=== PATIENT | male | born 1950 | race Caucasian/White ===

== ENCOUNTER → 2018-04-11 | Outpatient (CLI) | payer MEDICARE, OTHER ==
[~2018-04-11] MED LIST: LIDOCAINE HCL 1% LOCAL INJ 20 ML VIAL ONE
--- NOTE | 2018-04-11 15:00 | Diagnostic Imaging Report ---
PROCEDURE:BIOPSY THYROID FNA COMPARISON:CT scan of the neck with contrast from an outside facility 04/04/2018 INDICATIONS:Thyroid nodule Procedure diagnosis: Right thyroid nodule Post procedure diagnosis: Right thyroid nodule Sedation/anesthesia: None Additional medications: Lidocaine 1% local anesthesia Eyelet Cutter: Ryan Yuen M.D. Estimated blood loss: Minimal Blood products administered: None Specimens: Fine-needle aspiration specimens x4 Implant/graft: None FINDINGS: Informed consent the procedure was obtained from the patient and documented in the medical record after discussion of risks and benefits. The patient was placed in the supine position on the sonographic table. The right cervical region was prepped and draped in standard sterile fashion. 1% lidocaine was infiltrated into the skin and subcutaneous tissues for local anesthesia. Then under continuous sonographic guidance, 3 fine needle aspiration specimens were obtained using 25 gauge needles. Due to scant material on initial aspiration passes, an additional fine-needle aspiration specimen was obtained under ultrasound guidance using a 21-gauge needle. Specimens were submitted to on-site cytopathology personnel and adequacy was confirmed. Hardware was removed and a sterile dressing was applied. CONCLUSION: Successful ultrasound-guided fine needle aspiration of a right thyroid nodule as above. Dictated by: Ryan uYen M.D. on 04/11/2018 at 15:03 Electronically approved by: Ryan Yuen M.D. on 04/11/2018 at 15:03
--- NOTE | 2018-04-11 15:01 | Diagnostic Imaging Report ---
PROCEDURE:US THYROID COMPARISON:CT neck from an outside facility in April 2018. INDICATIONS:Right thyroid nodule FINDINGS: Right lobe: 5 x 3.2 x 3.9 cm. There is a complex mixed cystic and solid nodule with a large solid component in interpolar region measuring 5 x 3.2 x 3.4 cm. A coarse internal calcifications noted. Left lobe: 5.6 x 1.2 x 1.4 cm. Uniform parenchymal echotexture without focal nodule. Isthmus: 0.3 cm in thickness. Cervical region: Enlarged right jugular chain lymph nodes with loss of normal morphology, the largest of which measures 3 x 1.3 x 2.8 cm. CONCLUSION: Suspicious right thyroid nodule, subsequently biopsied and separately reported. Enlarged cervical lymph nodes and abnormal morphology concerning for metastatic disease. Dictated by: Ryan Yuen M.D. on 04/11/2018 at 15:05 Electronically approved by: Ryan Yuen M.D. on 04/11/2018 at 15:05
--- NOTE | 2018-04-15 09:29 | Diagnostic Imaging Report ---
PROCEDURE:BIOPSY THYROID FNA COMPARISON:CT scan of the neck with contrast from an outside facility 04/04/2018 INDICATIONS:Thyroid nodule Procedure diagnosis: Right thyroid nodule Post procedure diagnosis: Right thyroid nodule Sedation/anesthesia: None Additional medications: Lidocaine 1% local anesthesia Product Development Specialist: Ryan Yuen M.D. Estimated blood loss: Minimal Blood products administered: None Specimens: Fine-needle aspiration specimens x4 Implant/graft: None FINDINGS: Informed consent the procedure was obtained from the patient and documented in the medical record after discussion of risks and benefits. The patient was placed in the supine position on the sonographic table. The right cervical region was prepped and draped in standard sterile fashion. 1% lidocaine was infiltrated into the skin and subcutaneous tissues for local anesthesia. Then under continuous sonographic guidance, 3 fine needle aspiration specimens were obtained using 25 gauge needles. Due to scant material on initial aspiration passes, an additional fine-needle aspiration specimen was obtained under ultrasound guidance using a 21-gauge needle. Specimens were submitted to on-site cytopathology personnel and adequacy was confirmed. Hardware was removed and a sterile dressing was applied. CONCLUSION: Successful ultrasound-guided fine needle aspiration of a right thyroid nodule as above. Dictated by: Ryan Yuen M.D. on 04/11/2018 at 15:03 Electronically approved by: Ryan Yuen M.D. on 04/11/2018 at 15:03
== END ==
LOC: US 11:21
PROVIDERS: ATTEND Otolaryngology Otolaryngology/Facial Plastic Surgery
DX: E04.1 Nontoxic single thyroid nodule (principal)
CPT/HCPCS: 10022; 76536; 76942; 88112; 88172; 88173; 88305; J2001

== ENCOUNTER → 2020-03-01 | Day surgery (SDC) | payer MEDICARE, OTHER ==
--- NOTE | 2020-02-26 13:18 | Diagnostic Imaging Report ---
EXAMINATION: CHEST 2 VIEWS INDICATION: Pre-operative COMPARISON: None FINDINGS: LINES/TUBES:None LUNGS:The lungs are hyperinflated. No focal consolidation or pulmonary edema. PLEURA:No pleural effusion or pneumothorax. MEDIASTINUM:The cardiomediastinal silhouette appears normal in size and shape. BONES/SOFT TISSUES:No acute osseous injury. ABDOMEN:No free air under the diaphragm. IMPRESSION: Hyperinflated lungs. No focal pneumonia or pulmonary edema. Signed by: Shanon Iverson MD on 02/26/2020 1:15 PM
[2020-02-26 13:26] LABS: EOSINOPHILS # (AUTO) 0.1 (0.0-0.4); EOSINOPHILS % 2.9 % (0.0-6.0); HEMATOCRIT 44.3 % (38.2-49.6); HEMOGLOBIN 15.4 g/dL (14.0-18.0); LYMPHOCYTES # (AUTO) 1.3 (1.0-3.2); LYMPHOCYTES % 34.2 % (18.0-39.1); MEAN CORPUSCULAR HEMOGLOBIN 31.3 pg (28-32); MEAN CORPUSCULAR HGB CONC 34.8 g/dL (31-35); MONOCYTES # (AUTO) 0.3 (0.2-0.8); MONOCYTES % 7.3 % (4.4-11.3); NEUTROPHILS # (AUTO) 2.1 (2.1-6.9); NEUTROPHILS % 55.3 % (38.7-80.0); PLATELET COUNT 169 x10e3/uL (140-360); RED BLOOD COUNT 4.92 x10e6/uL (4.3-5.7); RED CELL DISTRIBUTION WIDTH 12.1 % (11.7-14.4)
[~2020-03-01] MED LIST changes: +ACETAMINOPHEN500 MG PO; +BUPIVACAINE HCL 0.5% INJ 30 ML VIAL INJ ONE; +CEFAZOLIN SOD 1 GM/NS 50ML 50 ML IV ONE; +CENTRUM PO; +CLARITIN-D 241 EACH PO; +DEXAMETHASONE SOD PHOS INJ 4 MG/ML VIAL ONE; +EPHEDRINE SULFATE INJ 50 MG/ML VIAL ONE; +FENTANYL CITRATE/PF 100MCG/2 ML INJ ONE; +LEVOTHYROXINE100 MC1 PO; -LIDOCAINE HCL 1% LOCAL INJ 20 ML VIAL ONE; +LIDOCAINE HCL 2% LOCAL INJ 5 ML SDV VIAL INJ ONE; +MIDAZOLAM HCL 2 MG/2 ML VIAL ONE; +ONDANSETRON HCL INJ 2MG/ML 2ML 2 MG/ML VIAL ONE; +PROPOFOL IV EMULSION 10 MG/ML 20 ML VIAL ONE; +SEVOFLURANE INHAL SOLN 250 ML PEN BTL ONE; +TYLENOL PO; +ULTRAM 50MG50 MG PO
--- OUTSIDE RECORDS SUMMARY | 2020-03-01 05:33 | XMS REPORT ---
Author Author [facility] Organization [facility] Address Unknown Phone Unavailable Care Team Providers Care Glass Enamel Mixer Name Role Phone MAO BONDS Unavailable Unavailable Yung JUSTICE Unavailable Unavailable Problems This patient has no known problems. Allergies, Adverse Reactions, Alerts This patient has no known allergies or adverse reactions. Medications This patient has no known medications. Results Test Description Test Time Test Comments Text Results Atomic Results Result Comments CHEST 2 VIEWS 2020-02-26 13:14:[address] [address] Patient Name: EDUARDO BIGGS MR #: [id number] : 1950 Age/Sex: 69/M Req #: [id number] Adm Physician: Ordered by: MAO BONDS MD Report #: [id number] Location: OR Room/Bed: Procedure: [id number] DX/CHEST 2 VIEWS Exam Date: 02/26/20 Exam Time: 1300 REPORT STATUS: Signed EXAMINATION: CHEST 2 VIEWS INDICATION: Pre-operative COMPARISON: None FINDINGS: LINES/TUBES:None LUNGS:The lungs are hyperinflated. No focal consolidation or pulmonary edema. PLEURA:No pleural effusion or pneumothorax. MEDIASTINUM:The cardiomediastinal silhouette appears normal in size and shape. BONES/SOFT TISSUES:No acute osseous injury. ABDOMEN:No free air under the diaphragm. IMPRESSION: Hyperinflated lungs. No focal pneumonia or pulmonary edema. Signed by: Martha Varner MD on 02/26/2020 1:15 PM Dictated By: MARTHA VARNER MD 14 Transcribed By: JOSEPH on 02/26/201314 COPY TO: MAO BONDS MD THYROID 2018-04-11 15:05:00 [place] [address] Patient Name: EDUARDO BIGGS MR #: [id number] : 1950 Age/Sex: 67/M Req #: [id number] Adm Physician: Ordered by: DONOVAN JUSTICE MD Report #: [id number] Location: Room/Bed: Procedure: [id number] US/US THYROID Exam Date: Exam Time: REPORT STATUS: Signed PROCEDURE: US THYROID COMPARISON: CT neck from an outside facility in April 2018. INDICATIONS: Right thyroid nodule FINDINGS: Right lobe: 5 x 3.2 x 3.9 cm. There is a complex mixed cystic and solid nodule with a large solid component in interpolar region measuring 5 x 3.2 x 3.4 cm. A coarse internal calcifications noted. Left lobe: 5.6 x 1.2 x 1.4 cm. Uniform parenchymal echotexture without focal nodule. Isthmus: 0.3 cm in thickness. Cervical region: Enlarged right jugular chain lymph nodes with loss of normal morphology, the largest of which measures 3 x 1.3 x 2.8 cm. CONCLUSION: Suspicious right thyroid nodule, subsequently biopsied and separately reported. Enlarged cervical lymph nodes and abnormal morphology concerning for metastatic disease. Dictated by: Lea Correa M.D. on 04/11/2018 at 15:05 Electronically approved by: Lea Correa M.D. on 04/11/2018 at 15:05 Dictated By: LEA CORREA MD 1509 Transcribed By: MAKI on 04/11/18 1508 COPY TO: DONOVAN JUSTICE MD FNA THYROID 2018-04-11 15:03:00 [place] [address] Patient Name: EDUARDO BIGGS MR #: [id number] : 1950 Age/Sex: 67/M Req #: [id number] [facility] Physician: Ordered by: DONOVAN JUSTICE MD Report #: [id number] Location: Room/Bed: Procedure: [id number] US/FNA THYROID Exam Date: 04/11/18 Exam Time: 1347 REPORT STATUS: Signed PROCEDURE: BIOPSY THYROID FNA COMPARISON: CT scan of the neck with contrast from an outside facility 04/04/2018 INDICATIONS: Thyroid nodule Procedure diagnosis: Right thyroid nodule Post procedure diagnosis: Right thyroid nodule Sedation/anesthesia: None Additional medications: Lidocaine 1% local anesthesia Aerodynamics Professor: Lea Correa M.D. Estimated blood loss: Minimal Blood products administered: None Specimens: Fine-needle aspiration specimens x4 Implant/graft: None FINDINGS: Informed consent the procedure was obtained from the patient and documented in the medical record after discussion of risks and benefits. The patient was placed in the supine position on the sonographic table. The right cervical region was prepped and draped in standard sterile fashion. 1% lidocaine was infiltrated into the skin and subcutaneous tissues for local anesthesia. Then under continuous sonographic guidance, 3 fine needle aspiration specimens were obtained using 25 gauge needles. Due to scant material on initial aspiration passes, an additional fine-needle aspiration specimen was obtained under ultrasound guidance using a 21-gauge needle. Specimens were submitted to on-site cytopathology personnel and adequacy was confirmed. Hardware was removed and a sterile dressing was applied. CONCLUSION: Successful ultrasound-guided fine needle aspiration of a right thyroid nodule as above. Dictated by: Lea Correa M.D. on 04/11/2018 at 15:03 Electronically approved by: Lea Correa M.D. on 04/11/2018 at 15:03 Dictated By: LEA CORREA MD 1503 Transcribed By: MAKI on 04/11/18 1503 COPY TO: DONOVAN JUSTICE MD US GUIDANCE FOR PROCEDURE 2018-04-11 15:03:00 [place] [address] Patient Name: EDUARDO BIGGS MR #: [id number] : 1950 Age/Sex: 67/M Req #: [id number] Adm Physician: Ordered by: DONOVAN JUSTICE MD Report #: [id number] Location: Room/Bed: Procedure: US/US GUIDANCE FOR PROCEDURE Exam Date: 04/11/18 Exam Time: 1347 REPORT STATUS: Signed PROCEDURE: BIOPSY THYROID FNA COMPARISON: CT scan of the neck with contrast from an outside facility 04/04/2018 INDICATIONS: Thyroid nodule Procedure diagnosis: Right thyroid nodule Post procedure diagnosis: Right thyroid nodule Sedation/anesthesia: None Additional medications: Lidocaine 1% local anesthesia Aerodynamics Professor: Lea Correa M.D. Estimated blood loss: Minimal Blood products administered: None Specimens: Fine-needle aspiration specimens x4 Implant/graft: None FINDINGS: Informed consent the procedure was obtained from the patient and documented in the medical record after discussion of risks and benefits. The patient was placed in the supine position on the sonographic table. The right cervical region was prepped and draped in standard sterile fashion. 1% lidocaine was i nfiltrated into the skin and subcutaneous tissues for local anesthesia. Then under continuous sonographic guidance, 3 fine needle aspiration specimens were obtained using 25 gauge needles. Due to scant material on initial aspiration passes, an additional fine-needle aspiration specimen was obtained under ultrasound guidance using a 21-gauge needle. Specimens were submitted to on-site cytopathology personnel and adequacy was confirmed. Hardware was removed and a sterile dressing was applied. CONCLUSION: Successful ultrasound-guided fine needle aspiration of a right thyroid nodule as above. Dictated by: Lea Correa M.D. on 04/11/2018 at 15:03 Electronically approved by: Lea Correa M.D. on 04/11/2018 at 15:03 Dictated By: LEA CORREA MD 1503 Transcribed By: MAKI on 04/11/18 1503 COPY TO: DONOVAN JUSTICE MD
[2020-03-01 09:35] VITALS: BP 144/90
--- NOTE | 2020-03-01 11:51 | Operative Report ---
DATE OF PROCEDURE: 03/01/2020 SURGEON: Williams Cantu MD PREOPERATIVE DIAGNOSES: 1. Left carpal tunnel syndrome. 2. Dupuytren's contracture, left little finger. 3. Dupuytren's cord, left ring finger. 4. Dupuytren's cord, left long finger. 5. Dupuytren's cord, 1st web space. POSTOPERATIVE DIAGNOSES: 1. Left carpal tunnel syndrome. 2. Dupuytren's contracture, left little finger. 3. Dupuytren's cord, left ring finger. 4. Dupuytren's cord, left long finger. 5. Dupuytren's cord, 1st web space. PROCEDURES: 1. Left carpal tunnel release. 2. Flexor tenosynovectomy wrist. 3. Palmar fasciectomy and release of PIP joint, left little finger. 4. Palmar fasciectomy of left ring finger. 5. Palmar fasciectomy of left long finger. 6. Palmar fasciectomy of the left 1st web space. ANESTHESIA: General. HISTORY: The patient is a 69-year-old male, who has severe Dupuytren's diaphysis involving the left hand. He has a PIP joint contracture of the left little finger comprising approximately 45 to 50 degrees. The risks, benefits, and alternatives of treatment were discussed with the patient. He is prepared to undergo the procedure as outlined. PROCEDURE IN DETAIL: The patient was marked preoperatively in the holding area. He was brought to the operating theater. After the induction of adequate general anesthesia, he was prepped and draped in a supine position. A time-out was performed. The procedure was begun by marking out a 2 cm incision in the intrathenar space. The palmar fascia cords were then all marked out as well. The left upper extremity was exsanguinated and the tourniquet was inflated to a pressure of 250 mmHg. The incision in the proximal palm was made through the skin and subcutaneous tissues. Venous tributaries were controlled with bipolar cautery. The incision was deepened through the palmar fascia until the transverse carpal ligament was identified. The ligament was sharply sectioned, taking care to protect and preserve the median nerve underlying it. After the complete width of the ligament has transected. The distal volar forearm fascia was divided under direct view. The proliferative flexor tenosynovium was noticed to encompass the median nerve and this was radically excised. After performing this maneuver, the nerve was noted to lie adequately decompressed. The wound was copiously irrigated with bacteriostatic saline and closed with a 5-0 nylon interrupted horizontal mattress fashion. A Marcaine field block was performed at the operative site. The incision for the left little finger is made on the palm and carried onto the proximal phalanx. Using sharp dissection, the skin flaps were then elevated in the deep dermal plane off the palmar fascial cord. Once the entire length of the cord has been identified proximally. The cord is transected by lifting it up out of the plane of the palm with a hemostat. The cord was then transected. Dissection on both the radial and ulnar side of the cord that allows us to visualize the neurovascular bundles clearly. Using the neurovascular bundles as a guide, the dissection continues from proximal to distal. Care was taken to ensure that all of the vertical extensions to the intrinsic muscles are released at their insertion onto the intrinsic muscles. The cord was then elevated off the flexor tendon sheath protecting and preserving the neurovascular bundles on either side. At the level of the proximal phalanx, the cord terminates at the volar plate and after verifying the radial and ulnar digital neurovascular bundles to the proximal phalanx, the cord was removed in its entirety. It was sent for permanent pathologic examination. Examination of the dissected area shows the A1 tejas to be completely intact. The neurovascular bundles were intact throughout the entire length of the dissection. The medial skin flap was then elevated with skin hooks and the palmar fascia cords to the left ring and left long fingers are then dissected out sharply from their deep dermal attachments. Once the cords are well visualized, they are transected and then excised very superficial to the neurovascular bundles. At this point, an incision was made in the 1st web space through the skin and subcutaneous tissues and the cord that goes along the adductor muscle was identified and entered sharply, excised, and removed. At this point, all the wounds were irrigated with bacteriostatic saline. A Z-plasty is marked out and performed at the MP flexion crease of the left little finger. The incisions were then closed with 5-0 nylon in interrupted horizontal mattress fashion. A Marcaine field block was performed at all the operative sites. The tourniquet was deflated. The fingers pinked up nicely. The PIP joint of the left little finger was only able to be extended to approximately 25 to 30 degrees. Xeroform gauze and Bactroban ointment were placed on the sutures. A sterile bulking conforming bandage was applied to the hand, wrist, and forearm; and a fiberglass splint was fashioned to maintain the wrist in a modest amount of extension. The MPs at approximately 60 to 70 degrees of flexion and the IPs was neutral as possible. This was held in place with a loosely wrapped Sergo wrap. The patient tolerated the procedure well and was brought to recovery room in satisfactory condition. The tourniquet time was 77 minutes. MD FAHAD Walton/MELISA /[id number]
== END | disposition home or self-care (01) ==
LOC: OR 05:26 → EDSTATUS 07:00
PROVIDERS: ATTEND Plastic Surgery
DX: M72.0 Palmar fascial fibromatosis [Dupuytren] (principal); G56.02 Carpal tunnel syndrome, left upper limb; E03.9 Hypothyroidism, unspecified; Z01.810 Encounter for preprocedural cardiovascular examination; Z01.812 Encounter for preprocedural laboratory examination; Z01.818 Encounter for other preprocedural examination; Z11.59 Encounter for screening for other viral diseases; Z88.6 Allergy status to analgesic agent; Z88.8 Allergy status to other drugs, medicaments and biological substances; Z91.013 Allergy to seafood; Z85.850 Personal history of malignant neoplasm of thyroid; Z86.718 Personal history of other venous thrombosis and embolism; Z87.891 Personal history of nicotine dependence
CPT/HCPCS: 25115; 26123; 26125 ×2; 36415; 71046; 85025; 87635; 88304; 93005; J0690; J1100; J2001; J2250; J2405; J2704; J3010

== ENCOUNTER 2020-04-01 10:00 | Outpatient (RCR) | payer MEDICARE, OTHER ==
[~2020-04-01 10:00] MED LIST changes: -BUPIVACAINE HCL 0.5% INJ 30 ML VIAL INJ ONE; -CEFAZOLIN SOD 1 GM/NS 50ML 50 ML IV ONE; -DEXAMETHASONE SOD PHOS INJ 4 MG/ML VIAL ONE; -EPHEDRINE SULFATE INJ 50 MG/ML VIAL ONE; -FENTANYL CITRATE/PF 100MCG/2 ML INJ ONE; -LIDOCAINE HCL 2% LOCAL INJ 5 ML SDV VIAL INJ ONE; -MIDAZOLAM HCL 2 MG/2 ML VIAL ONE; -ONDANSETRON HCL INJ 2MG/ML 2ML 2 MG/ML VIAL ONE; -PROPOFOL IV EMULSION 10 MG/ML 20 ML VIAL ONE; -SEVOFLURANE INHAL SOLN 250 ML PEN BTL ONE
== END 2020-04-03 ==
LOC: OT 10:00
PROVIDERS: ATTEND Plastic Surgery
DX: M72.0 Palmar fascial fibromatosis [Dupuytren] (principal); M25.642 Stiffness of left hand, not elsewhere classified
CPT/HCPCS: 97010 ×6; 97035 ×6; 97110 ×4; 97140 ×3; 97165; 97763 ×5; L3933

== ENCOUNTER 2020-04-20 07:58 | Outpatient (RCR) | payer MEDICARE, OTHER | END 2020-05-03 | LOC: OT 07:58 | PROVIDERS: ATTEND Plastic Surgery | DX: M72.0 Palmar fascial fibromatosis [Dupuytren] (principal); M25.642 Stiffness of left hand, not elsewhere classified ==

== ENCOUNTER 2021-03-09 23:21 | Emergency (ER) | payer MEDICARE, OTHER ==
[~2021-03-09] VITALS: Ht 177.8 cm; Wt 88.5 kg
== END 2021-03-10 00:47 | disposition home or self-care (01) ==
LOC: ER 23:33
DX: Z46.6 Encounter for fitting and adjustment of urinary device (principal); E03.9 Hypothyroidism, unspecified; Z85.46 Personal history of malignant neoplasm of prostate
CPT/HCPCS: 99282